=== PATIENT | male | born 1935 | race Caucasian/White ===

== ENCOUNTER → 2016-11-04 | Outpatient (CLI) | payer OTHER ==
[~2016-11-04] MED LIST: ALLO100T PO; ATEN50TA8 PO; GLC/500 PO; NAPR1TAB9 PO
[2016-11-04 12:45] VITALS: BP 146/71; PULSE 60; TEMP 36.9; O2SAT 94
--- NOTE | 2016-11-04 13:32 | Radiation Oncology Follow-Up ---
Radiation Oncology Follow-Up Date of Visit Nov 04, 2016. Reason For Visit Annual follow-up Radiation Completion Date Seed implant on 12/08/11 and IMRT on 03/13/12;Hormonal suppression Diagnosis (1) prostate cancer Status: Resolved Onset Date: 04/15/2012 Location: left lobe of the prostate Histology Subtype: adenocarcinoma Stage: ll Permanent Comment: History of benign prostatic hypertrophy Rising PSA, pretreatment PSA 12 Status post ultrasound-guided biopsies Mj 3+4 Hormonal suppression Status post prostate seed implant 12/08/2011 with cesium 131 Status post IMRT/IGRT completed 03/13/2012 received 45 plata Last Edited By: Priscilla Cornelius on Oct 23, 2014 16:06 Interim History He's been doing well over this past year from urinary standpoint. His AUA score has improved. Today he gave a score of 6. Last year he gave a score of 15. He is not on any medication to help with urination. He is up-to-date on follow-up PSAs. He had a PSA at [facility] on 04/26/2016. That was found to be 0.03. He completed expanded prostate cancer index composite for clinical practice and gave a score of 0 12 and urinary incontinence symptoms. He gave a score for 12 urinary irritation symptoms. He gave a score of 0 12 and bowel symptoms. He gave a score of 12 of 12 sexual symptoms. He gave a score of one of 12 and hormonal vitality symptoms. His total was 17 of 60. We have previously followed DEXA scanning due to his hormone suppression. He is due for recheck scan this year. He had areas of moderate and high risk. Allergies Coded Allergies: No Known Allergies (Unverified , 11/04/11) Home Medications Scheduled Atenolol (Tenormin), 50 MG PO DAILY Metformin Hcl (Glucophage), 500 MG PO BID Review of Systems Gastrointestinal: Symptoms: WNL GI Comments: No fiber supplements; Oral: Symptoms: No Problems Respiratory: Symptoms: WNL Urinary: Symptoms: Nocturia Comments: Doesn't ignore urge to void;Sometimes able to go longer 2hs betw' n voids; Skin: Symptoms: No Problems Physical Exam Vital Signs Date Time Temp Pulse Resp B/P (MAP) Pulse Ox O2 Delivery O2 Flow Rate FiO2 11/04/16 12:45 36.9 60 28 146/71 94 Fatigue: None General Appearance: no apparent distress Eyes: normal inspection, EOMI ENT: normal ENT inspection, hearing grossly normal Neck: no adenopathy, thyroid normal Respiratory/Chest: lungs clear, no respiratory distress, no accessory muscle use Cardiovascular: regular rate, rhythm, no gallop, no murmur Abdomen: non tender, soft, no organomegaly Anal / Rectum: Normal sphincter tone. Prostate is smooth without nodules. No rectal masses and no rectal bleeding. Extremities: no pedal edema Neurologic/Psychiatric: no motor/sensory deficits, alert, normal mood/affect Skin: warm/dry Laboratory Studies Test Pending 11/04/16 13:15 Additional Studies He had a PSA at [facility] 04/26/2016. This was 0.03. Assessment & Plan Plan: Continue regular follow-up with his primary care physician and Dr. Spangler. He'll see Dr. Spangler in 6 months with recheck PSA. We did order a DEXA scan in follow-up. The PSA was drawn today prior to examination. He'll be notified as to results. We asked him to return to our office in 1 year. We discussed that this would likely be his final visit to our office. He can then follow with Dr. Spangler. He may call our office if he has any questions or concerns in the interim. Total Time In Follow-Up I spent 20 minutes speaking to the patient and performing examination. I spent 15 minutes reviewing information and completing this note. Copy To Sancho Spangler MD, Urology; Mann Wu MD
== END | disposition home or self-care (01) ==
LOC: C.ONC 12:34
PROVIDERS: ATTEND Physician Assistant Medical
DX: Z08 Encounter for follow-up examination after completed treatment for malignant neoplasm (principal); Z92.3 Personal history of irradiation; Z85.46 Personal history of malignant neoplasm of prostate

== ENCOUNTER → 2016-11-25 | Outpatient (CLI) | payer OTHER ==
[~2016-11-25] MED LIST changes: -ALLO100T PO; -NAPR1TAB9 PO
== END | disposition home or self-care (01) ==
LOC: C.MAMM 07:38
PROVIDERS: ATTEND Physician Assistant Medical
DX: C61 Malignant neoplasm of prostate (principal)